=== PATIENT | male | born 1950 | race Caucasian/White ===

== ENCOUNTER 2017-11-06 12:17 | Day surgery (SDC) | payer OTHER ==
[~2017-11-06] VITALS: Ht 177.8 cm; Wt 105.8 kg
[~2017-11-06 12:17] MED LIST: FINA5; FLUC100; GUAI600T33; IBUP400; NALTREXONE HCL PO
== END 2017-11-06 14:43 | disposition home or self-care (01) ==
LOC: ORSCSDS 12:17
PROVIDERS: Internal Medicine Gastroenterology
PROC: 0DBH8ZX Excision of Cecum, Via Natural or Artificial Opening Endoscopic, Diagnostic (ICD-10-PCS; principal; 2017-11-06 13:30)
DX: Z12.11 Encounter for screening for malignant neoplasm of colon (principal); D12.0 Benign neoplasm of cecum; K57.30 Diverticulosis of large intestine without perforation or abscess without bleeding; Z86.010 Personal history of colon polyps
CPT/HCPCS: 88305; J7120

== ENCOUNTER → 2020-07-13 | Outpatient (CLI) | payer OTHER | END | disposition home or self-care (01) | LOC: LAB 15:16 → LAB SHORT 15:16 | DX: L85.9 Epidermal thickening, unspecified (principal); L83 Acanthosis nigricans | CPT/HCPCS: 88305 ==

== ENCOUNTER 2022-09-03 12:00 | Day surgery (SDC) | payer OTHER ==
[~2022-09-03] VITALS: Ht 177.8 cm; Wt 234.0 kg
--- NOTE | 2022-09-03 15:41 | NUR ---
09/03/22 1541 Lolis Anderson LABS DRAWN PER DR. LOPEZ ORDER BEFORE PT. LEFT. BLOOD TAKEN TO LAB. ORDER PUT IN BY [facility].JST. PT. DID VERBALIZE THAT HE HAD SOME LABS DRAWN LAST SATURDAY, [facility] [place], DR. LOPEZ NOTIFIED & ONLY [facility], [facility] NEEDED TO BE DRAWN TODAY PER DR. LOPEZ. ATTEMPTED IV DRAWN IN [facility] WITHOUT SUCCESS, [facility] ACCESSED FOR LAB DRAW WITH SUCCESS.
[2022-09-03 15:50] LABS: Albumin, Blood 3.5 g/dL (3.4-5.0); Albumin/Globulin Ratio 1.2 (0.8-1.8); Bun/Creatinine Ratio 9.9 (12.0-20.0); Calcium, Blood 8.8 mg/dL (8.5-10.1); Creatinine, Blood 1.01 mg/dL (0.60-1.20); Free Thyroxine 1.01 ng/dL (0.70-1.60); Globulin, Blood 2.8 g/dL (2.2-4.0); Potassium, Blood 3.7 mmol/L (3.5-5.5); Total Protein, Blood 6.3 g/dL (6.4-8.2)
== END 2022-09-03 14:58 | disposition home or self-care (01) ==
LOC: ORSCSDS 12:00
PROVIDERS: Internal Medicine Gastroenterology
DX: Z12.11 Encounter for screening for malignant neoplasm of colon (principal); Z86.010 Personal history of colon polyps; D12.3 Benign neoplasm of transverse colon; K63.5 Polyp of colon; K57.30 Diverticulosis of large intestine without perforation or abscess without bleeding; M79.7 Fibromyalgia; Z79.899 Other long term (current) drug therapy
CPT/HCPCS: 80053; 84439; 88305; 93005; 93010; J2704; J7120

== ENCOUNTER → 2022-09-12 | Outpatient (CLI) | payer OTHER ==
[2022-09-12 15:56] LABS: BASOPHILS ABSOLUTE AUTO 0.05 K/mm3 (0.00-0.23); BASOPHILS PERCENT AUTO 1 % (0-2); EOSINOPHILS ABSOLUTE AUTO 0.15 K/mm3 (0.00-0.68); EOSINOPHILS PERCENT AUTO 3 % (0-6); Hemoglobin 18.8 g/dL (13.5-17.5); IMMATURE GRAN ABSOLUTE AUTO 0.01 K/mm3 (0.00-0.10); IMMATURE GRAN PERCENT AUTO 0 % (0-1); LYMPHOCYTES ABSOLUTE AUTO 2.06 K/mm3 (0.84-5.20); LYMPHOCYTES PERCENT AUTO 34 % (21-46); MONOCYTES ABSOLUTE AUTO 0.46 K/mm3 (0.16-1.47); MONOCYTES PERCENT AUTO 8 % (4-13); Mean Corpuscular HGB 26.6 pg (26.0-34.0); Mean Corpuscular Volume 81 fL (80-100); Mean Platelet Volume 9.2 fL (9.1-12.4); NEUTROPHILS ABSOLUTE AUTO 3.33 K/mm3 (1.96-9.15); NEUTROPHILS PERCENT AUTO 55 % (41-73); Platelet Count 144 K/mm3 (150-400); RDW Coefficient Variation 15.7 % (11.7-14.2); RDW Standard Deviation 42.7 fL (35.1-46.3); Red Blood Cell Count 7.06 M/mm3 (4.30-5.90); White Blood Cell Count 6.06 K/mm3 (4.00-11.30)
[2022-09-12 15:57] LABS: Hematocrit 56.9 % (37.0-53.0)
[2022-09-12 17:38] LABS: Percent Saturation 15.8 % (20.0-50.0)
== END | disposition home or self-care (01) ==
LOC: LAB SHORT 14:45
PROVIDERS: Registered Nurse Oncology
DX: D75.1 Secondary polycythemia (principal); E83.10 Disorder of iron metabolism, unspecified
CPT/HCPCS: 82728; 83540; 83550; 85025

== ENCOUNTER 2025-07-27 11:35 | Day surgery (SDC) | payer OTHER ==
[2025-07-27] VITALS (25 sets, daily range): BP systolic 117–188; BP diastolic 60–112
[~2025-07-27] VITALS: Ht 177.8 cm; Wt 109.3 kg
[~2025-07-27 11:35] MED LIST changes: +DOXE50 PO; +ESZO2 PO; +HYOS0.375T PO; +TADA10TA
--- NOTE | 2025-07-27 12:31 | NUR ---
Pre-Op teaching done. Pt verbalizes understanding. Patient States Post-Procedure ride home has been arranged. Patient confirms NPO status and agrees with scheduled surgery.
--- NOTE | 2025-07-27 13:01 | NUR ---
07/27/25 1301 Kirk Fernandes CONFIRMED AND REVIEWED H&P, MEDCICATIONS, ALLERGIES, MEDICAL HISTORY, RESPIRATORY HISTORY, VITAL SIGNS, 3-LEAD EKG, CONSENTS, AND PHYSICIAN ORDERS. PATIENT CONFIRMS NPO STATUS AND AGREES WITH SCHEDULED PROCEDURE. MONITOR INTACT WITH CONTINUOUS PULSE OXIMETRY, CAPNOGRAPHY, 3-LEAD EKG, INTERMITTENT BP. SUPPLEMENTAL O2 TO BE TITRATED THROUGHOUT PROCEDURE TO MAINTAIN O2 SATURATION ABOVE 90%. PATIENT DETERMINED TO BE ASA APPROPRIATE FOR PROPOFOL SEDATION PRIOR TO START OF PROCEDURE BY DR. WEBSTER
--- NOTE | 2025-07-27 14:18 | NUR ---
Discharge instructions reviewed with patient. Patient verbalizes understanding. Copy given to patient to take home. Discharged via wheelchair to private car for ride home.
== END 2025-07-27 14:10 | disposition home or self-care (01) ==
LOC: ORSCMMR 11:35 → ORD 13:00 → ORSCMMR 13:00
PROVIDERS: Surgery
PROC: 0DBN8ZX Excision of Sigmoid Colon, Via Natural or Artificial Opening Endoscopic, Diagnostic (ICD-10-PCS; principal; 2025-07-27 13:00)
DX: Z12.11 Encounter for screening for malignant neoplasm of colon (principal); K63.5 Polyp of colon; K57.30 Diverticulosis of large intestine without perforation or abscess without bleeding; Z86.0101 Personal history of adenomatous and serrated colon polyps; M79.7 Fibromyalgia; Z79.899 Other long term (current) drug therapy
CPT/HCPCS: 88305; J2704; J7120